=== PATIENT | female | born 1990 | race African-American/Black ===

== ENCOUNTER 2020-06-03 10:38 | Emergency (ER) | payer OTHER, SELFPAY ==
[2020-06-03 10:56] VITALS: BP 121/76; PULSE 80; RESP 16; TEMP 36.9; O2SAT 100; BMI 36.9
[2020-06-03 11:01] VITALS: BP 121/76; RESP 80; TEMP 36.9; O2SAT 100
--- NOTE | 2020-06-03 11:01 | ED.GENADULT ---
HPI - General Adult General Chief complaint: Abdominal Pain Stated complaint: ABD PAIN Time Seen by Provider: 06/03/20 10:55 Source: patient Mode of arrival: ambulatory Limitations: no limitations History of Present Illness HPI narrative: patient comes to the emergency room complaining of diarrhea for 5 days. Patient denies vomiting, no abdominal pain, no fever. Patient states she has not tried any [id number] medications at home for the diarrhea MD complaint: diarrhea Related Data Previous Rx's Medication Instructions Recorded loperamide 2 mg PO Q6H PRN #10 cap 06/03/20 Allergies Allergy/AdvReac Type Severity Reaction Status Date / Time No Known Allergies Allergy Verified 06/03/20 10:38 [No Known Allergies*] Review of Systems Review of Systems: Constitutional : No Weight loss, No Fever, No Chills, No Night Sweats, No Fatigue, No Malaise ENT/Mouth : No Hearing loss, No Ear Pain, No Nasal Congestion, No Sinus Pain, No Hoarseness, No sore throat, No Rhinorrhea, No Swallowing Difficulty Eyes: No Eye Pain, No Swelling, No Redness, No Foreign Body, No Discharge, No Vision Changes Cardiovascular : No Chest Pain, No SOB, No Dyspnea on Exertion, No Orthopnea, No Edema, No Palpitations Respiratory : No Cough, No Sputum, No Wheezing, No Smoke Exposure, No Dyspnea Gastrointestinal : No Nausea, No Vomiting, complaining of diarrhea Genitourinary : no irregular bleeding, No Dysuria, No Urinary Frequency, No Hematuria, No Urinary Incontinence, No Urgency, No Flank Pain, No Urinary Flow Changes, No Hesitancy Musculoskeletal : No joint pain, No Myalgias, No Joint Swelling Skin : No Skin Lesions, No rash Neuro : No Weakness, No Numbness, No Paresthesias, No Loss of Consciousness, No Dizziness, No Headache Psych : No Anxiety/Panic, No Depression, No SI/HI/AH/VH, No Social Issues, Heme/Lymph: No Bruising, No Bleeding,No Lymphadenopathy Endocrine : No Polyuria, No Polydipsia, No Temperature Intolerance [facility] Past Medical History Medical History No known health problems Social History Social History Alcohol intake: current Alcohol intake frequency: a few times a month Smoking Status: Never smoker Use of substances other than those prescribed or required for medical reasons: No Advance Directives: No Advance Directives Information Provided: No Physical Exam Vital Signs: Vital Signs: Vital Signs Temp Pulse Resp BP Pulse Ox 06/03/20 11:01 98.4 F 80 H 121/76 100 06/03/20 10:56 98.4 F 80 16 121/76 100 Body Mass Index 36.9 Appearance: Alert. Oriented X3. No acute distress. Eyes: Pupils equal, round and reactive to light. ENT: Pharynx normal. Neck: Normal inspection. Neck supple. No lymph nodes noted. No crepitus CVS: Normal heart rate and rhythm. Pulses normal. Normal S1 and S2 Respiratory: No respiratory distress. Breath sounds normal. No Wheezing. No rales Abdomen: Soft and nontender. No rigidity. No distention. good BS x4 Skin: Skin warm and dry. Normal skin color. Normal skin turgor. Extremities: No lower extremity edema. No lower extremity edema. No Lacerations. No Rash Neuro: Oriented X 3. No motor deficit. No sensory deficit. Moving all extermities. No slurred speech. Course Course Course Narrative: patient feeling better, she has not had any diarrhea since she came to the emergency room. Medical Decision Making Lab Data Result diagrams: 06/03/20 11:19 06/03/20 12:42 Labs: Lab Results 06/03/20 06/03/20 06/03/20 Range/Units 11:19 11:19 11:19 WBC 6.0 (4.8-10.8) X10*3/uL RBC 4.27 (4.20-5.50) X10*6/uL Hgb 12.3 (12.0-16.0) g/dl Hct 37.8 (37-47) % MCV 88.5 (80-98) fL MCH 28.8 (27.0-33.0) pg MCHC 32.5 (31.0-35.0) g/dl RDW 12.5 (11.0-16.0) % Plt Count 344 (160-400) X10*3/uL MPV 10.6 (9.4-12.3) fL Immature Gran % (Auto) 0.2 (0.0-0.4) % Neut % (Auto) 41.3 L (45-73) % Lymph % (Auto) 43.7 H (20-40) % [place] % (Auto) 12.1 H (2-11) % Eos % (Auto) 2.0 (0-4) % Baso % (Auto) 0.7 (0-2) % Lymph # (Auto) 2.6 (1.2-4.9) X10*3/uL [place] # (Auto) 0.7 (0.1-1.2) X10*3/uL Eos # (Auto) 0.1 (0.0-0.4) X10*3/uL Baso # (Auto) 0.0 (0.0-0.2) X10*3/uL Abs Immat Gran (auto) 0.01 (0.00-0.03) X10*3/uL Absolute Neuts (auto) 2.5 (2.0-8.3) X10*3/uL Absolute Nucleated RBC 0.000 (0.0-0.012) X10*3/uL Nucleated RBC % (auto) 0.0 (0.0-0.2) /100WBC Sodium Cancelled Potassium Cancelled Chloride Cancelled Carbon Dioxide Cancelled Anion Gap Cancelled BUN Cancelled Creatinine Cancelled Estim Creat Clear Calc Cancelled Estimated GFR Cancelled Random Glucose Cancelled Calcium Cancelled Total Bilirubin Cancelled Direct Bilirubin Cancelled AST Cancelled ALT Cancelled Alkaline Phosphatase Cancelled Total Protein Cancelled Albumin Cancelled Lipase Cancelled Urine Color YELLOW Urine Appearance HAZY Urine pH 6.0 (5.0-8.0) Ur Specific [place] >= 1.030 H (1.005-1.025) Urine Protein NEG (NEG-TRACE) MG/DL Urine Glucose (UA) NEG (NEG) MG/DL Urine Ketones NEG (NEG) MG/DL Urine Blood NEG (NEG) Urine Nitrite NEG (NEG) Ur Leukocyte Esterase NEG (NEG) Urine Test NEGATIVE (NEGATIVE) 06/03/20 Range/Units 12:42 WBC (4.8-10.8) X10*3/uL RBC (4.20-5.50) X10*6/uL Hgb (12.0-16.0) g/dl Hct (37-47) % MCV (80-98) fL MCH (27.0-33.0) pg MCHC (31.0-35.0) g/dl RDW (11.0-16.0) % Plt Count (160-400) X10*3/uL MPV (9.4-12.3) fL Immature Gran % (Auto) (0.0-0.4) % Neut % (Auto) (45-73) % Lymph % (Auto) (20-40) % [place] % (Auto) (2-11) % Eos % (Auto) (0-4) % Baso % (Auto) (0-2) % Lymph # (Auto) (1.2-4.9) X10*3/uL [place] # (Auto) (0.1-1.2) X10*3/uL Eos # (Auto) (0.0-0.4) X10*3/uL Baso # (Auto) (0.0-0.2) X10*3/uL Abs Immat Gran (auto) (0.00-0.03) X10*3/uL Absolute Neuts (auto) (2.0-8.3) X10*3/uL Absolute Nucleated RBC (0.0-0.012) X10*3/uL Nucleated RBC % (auto) (0.0-0.2) /100WBC Sodium 137 Potassium 4.2 Chloride 108 Carbon Dioxide 22 Anion Gap 11 L BUN 16 Creatinine 0.81 Estim Creat Clear Calc 131.3 Estimated GFR > 60 Random Glucose 87 Calcium 8.1 L Total Bilirubin 0.2 Direct Bilirubin < 0.2 AST 10 ALT 9 Alkaline Phosphatase 55 Total Protein 6.1 L Albumin 3.5 Lipase 74 Urine Color Urine Appearance Urine pH (5.0-8.0) Ur Specific [place] (1.005-1.025) Urine Protein (NEG-TRACE) MG/DL Urine Glucose (UA) (NEG) MG/DL Urine Ketones (NEG) MG/DL Urine Blood (NEG) Urine Nitrite (NEG) Ur Leukocyte Esterase (NEG) Urine Test (NEGATIVE) Discharge Plan Discharge Clinical Impression: Diarrhea Qualifiers: Diarrhea type: unspecified type Qualified Code(s): R19.7 - Diarrhea, unspecified Patient Disposition: Home, Self-Care Instructions: Acute Diarrhea (ED) Additional Instructions: Please follow-up with your primary care physician tomorrow. If you have any worsening or new symptoms, please return to the emergency room or call 911 Prescriptions: New loperamide 2 mg capsule 2 mg PO Q6H PRN (Reason: loose stool) Qty: 10 RF: 0
[2020-06-03] MEDS: 0.9 % Sodium Chloride 1,000 ML 999 ML IVCONT (11:20)
--- NOTE | 2020-06-03 11:24 | PC.NURSE ---
pt triaged c/o RUQ cramping pain x 2 days with 1 wk of diarrhea. denies fevers, n/v. 22G in L hand, fluids running. no other significant pmh.
[2020-06-03 11:26] LABS: Basophils Percent Auto 0.7 % (0-2); Eosinophils Absolute Auto 0.1 X10*3/uL (0.0-0.4); Hematocrit 37.8 % (37-47); Hemoglobin 12.3 g/dl (12.0-16.0); Imm Gran Abs Auto 0.01 X10*3/uL (0.00-0.03); Imm Gran Pct Auto 0.2 % (0.0-0.4); Lymphocytes Absolute Auto 2.6 X10*3/uL (1.2-4.9); Lymphocytes Percent Auto 43.7 % (20-40); MANUAL DIFF FLAG NO; Mean Corpuscular HGB Conc 32.5 g/dl (31.0-35.0); Mean Corpuscular Hemoglobin 28.8 pg (27.0-33.0); Mean Corpuscular Volume 88.5 fL (80-98); Mean Platelet Volume 10.6 fL (9.4-12.3); Monocytes Absolute Auto 0.7 X10*3/uL (0.1-1.2); Monocytes Percent Auto 12.1 % (2-11); Neutrophils Absolute Auto 2.5 X10*3/uL (2.0-8.3); Neutrophils Percent Auto 41.3 % (45-73); Platelet Count 344 X10*3/uL (160-400); Red Blood Count 4.27 X10*6/uL (4.20-5.50); Red Cell Distribution Width 12.5 % (11.0-16.0)
--- NOTE | 2020-06-03 11:30 | PC.NURSE ---
PHARMACY CALLED FOR LIQUID IMODIUM
[2020-06-03 11:41] LABS: Glucose Urine UA NEG (NEG); Leukocyte Esterase Urine NEG (NEG); Nitrite Urine NEG (NEG); Specific Gravity - Urine >= 1.030 (1.005-1.025); Urine Blood NEG (NEG); Urine Ketones NEG (NEG); Urine Protein NEG (NEG-TRACE)
[2020-06-03 11:42] LABS: Appearance Urine HAZY; Color Urine YELLOW; UACC Culture Trigger NO
[2020-06-03 11:44] LABS: UPreg QC Valid YES; Urine Pregnancy NEGATIVE (NEGATIVE)
[2020-06-03 13:13] LABS: Alanine Aminotransferase 9 U/L (0-31); Albumin Level 3.5 g/dL (3.5-5.0); Alkaline Phosphatase 55 U/L (39-117); Anion Gap 11 (12-20); Aspartate Amino Transferase 10 U/L (5-31); Bilirubin Direct < 0.2 mg/dL (0.0-0.5); Bilirubin Total 0.2 mg/dL (0.0-1.0); Blood Urea Nitrogen 16 mg/dL (9-16); Calcium 8.1 mg/dL (8.4-10.2); Carbon Dioxide 22 mmol/L (22-29); Chloride 108 mmol/L (96-108); Creatinine Clr Calc Pharmacy 131.3; Estimated Glomerular Filt Rate > 60; Glucose Random 87 mg/dL (60-115); Lipase 74 U/L (8-78); Potassium 4.2 mmol/l (3.3-5.1); Sodium 137 mmol/L (135-145); Total Protein 6.1 g/dL (6.5-8.0)
[2020-06-03 14:04] VITALS: BP 112/68; PULSE 73; RESP 16; O2SAT 99
== END 2020-06-03 14:04 | disposition home or self-care (01) ==
PROVIDERS: Emergency Provider Emergency Medicine
DX: R19.7 Diarrhea, unspecified (principal); R10.9 Unspecified abdominal pain; Z79.899 Other long term (current) drug therapy
CPT/HCPCS: 36415; 80048; 80076; 81003; 81025; 83690; 85025; 96360; 99284

== ENCOUNTER 2022-09-01 15:21 | Emergency (ER) | payer OTHER, SELFPAY ==
--- NOTE | ~2022-09-01 | XR_ITS ---
EXAMINATION: XR CHEST CLINICAL INFORMATION: Cough. Shortness of breath. COMPARISON: None TECHNIQUE: 2 views of the chest were obtained. XR/XR chest 2V FINDINGS/IMPRESSION: Findings suggest patchy left basilar densities suggesting lingular and possible left lower lobe pneumonia. Subtle right basilar pneumonia cannot be excluded as well. No effusion or pneumothorax is seen. The cardiovascular structures, mediastinum, diaphragm, bones, and soft tissues appear unremarkable.
[2022-09-01 15:32] VITALS: BP 123/85; PULSE 79; RESP 17; TEMP 37; O2SAT 94; BMI 39.1
--- NOTE | 2022-09-01 15:35 | ED.URI ---
HPI - URI/Sore Throat General Chief Complaint: General Medical <Stephanie Richard CNP - Last Filed: 09/01/22 15:36> Stated Complaint: flu like symptoms <Stephanie Richard CNP - Last Filed: 09/01/22 15:36> Time Seen by Provider: 09/01/22 15:47 <Stephanie Richard CNP - Last Filed: 09/01/22 15:36> Source: patient <FOX Mirza - Last Filed: 09/01/22 18:22> Mode of arrival: ambulatory <FOX Mirza - Last Filed: 09/01/22 18:22> History of Present Illness HPI Narrative: 31-year-old female with no significant past medical history presenting to the ED complaining of productive cough, sore throat, headache, rhinorrhea, congestion, SOB x2 weeks. Reports taking home COVID-19 test which was negative. States symptoms are persistent, + sick contact. Reports fevers in the beginning which have since resolved. Denies recent travel, CP, abdominal pain, nausea/vomiting, pedal edema <FOX Mirza - Last Filed: 09/01/22 18:22> MD elicited complaint: fever, cough, sore throat, rhinorrhea and nasal congestion <FOX Mirza - Last Filed: 09/01/22 18:22> Onset (ago): week(s) <FOX Mirza - Last Filed: 09/01/22 18:22> Related Data Home Medications: Previous Rx's Medication Instructions Recorded loperamide 2 mg capsule 2 mg PO Q6H PRN loose stool #10 06/03/20 caps <Stephanie Richard CNP - Last Filed: 09/01/22 15:36> Allergies/Adverse Reactions: Allergies Allergy/AdvReac Type Severity Reaction Status Date / Time No Known Allergies Allergy Verified 09/01/22 15:36 [No Known Allergies*] <Stephanie Richard CNP - Last Filed: 09/01/22 15:36> Review of Systems Review of Systems: Constitutional: + Fever (resolved), No Chills ENT/Mouth: No Ear Pain, + Nasal Congestion, No Sinus Pain, No Hoarseness, + sore throat, + Rhinorrhea, No Swallowing Difficulty Cardiovascular: No Chest Pain, + SOB Respiratory: + Cough, + Sputum, No Wheezing Gastrointestinal: No Nausea, No Vomiting, No Diarrhea, No Constipation, No Abdominal pain Musculoskeletal: No joint pain, No Myalgias, No Joint Swelling Skin: No Skin Lesions, No rash Neuro: No Weakness, No Numbness, No Paresthesias <FOX Mirza - Last Filed: 09/01/22 18:22> Yes all other systems are reviewed and are negative <FOX Mirza - Last Filed: 09/01/22 18:22> Constitutional: Constitutional: Reports as per HPI <FOX Mirza - Last Filed: 09/01/22 18:22> [facility] Past Medical History Attestation statement: The following information was validated with the patient. <FOX Mirza - Last Filed: 09/01/22 18:22> Medical History: Medical History No known health problems <Stephanie Richard CNP - Last Filed: 09/01/22 15:36> Social History Social History: Social History Alcohol intake: current Alcohol intake frequency: a few times a month Advance Directives: No Advance Directives Information Provided: No <Stephanie Richard CNP - Last Filed: 09/01/22 15:36> Physical Exam Vital Signs: Vital Signs: Last Vital Signs Temp 98.6 F 09/01/22 15:32 Pulse 79 09/01/22 15:32 Resp 17 09/01/22 15:32 BP 123/85 09/01/22 15:32 Pulse Ox 94 09/01/22 15:32 O2 Del Method 09/01/22 15:32 BMI result Body Mass Index 39.1 <Stephanie Richard CNP - Last Filed: 09/01/22 15:36> Vital Signs: Last Vital Signs Temp 98.6 F 09/01/22 15:32 Pulse 79 09/01/22 15:32 Resp 17 09/01/22 15:32 BP 123/85 09/01/22 15:32 Pulse Ox 94 09/01/22 15:32 O2 Del Method 09/01/22 15:32 BMI result Body Mass Index 39.1 <FOX Mirza - Last Filed: 09/01/22 18:22> Const: General: cooperative, healthy appearing, comfortable and no acute distress <FOX Mirza - Last Filed: 09/01/22 18:22> Orientation/consciousness: patient oriented x3 <FOX Mirza - Last Filed: 09/01/22 18:22> Limitations: no limitations <FOX Mirza - Last Filed: 09/01/22 18:22> HEENT: Head: Yes normal to inspection and Yes atraumatic <FOX Mirza - Last Filed: 09/01/22 18:22> Ears: hearing grossly normal bilaterally, TM's normal bilaterally and mastoids normal <FOX Mirza - Last Filed: 09/01/22 18:22> General nose exam: Normal external nose present <FOX Mirza - Last Filed: 09/01/22 18:22> Face and sinus: Yes normal facial exam <FOX Mirza - Last Filed: 09/01/22 18:22> Mouth: Normal oral and palatal mucosa present <FOX Mirza - Last Filed: 09/01/22 18:22> Throat: Yes posterior oropharynx normal, Yes tonsils normal, Yes uvula midline, No peritonsillar mass, No uvula laterally displaced and No uvular edema <FOX Mirza - Last Filed: 09/01/22 18:22> Eyes: General: appearance normal, both eyes and all related structures <FOX Mirza - Last Filed: 09/01/22 18:22> EOM: EOMs intact bilaterally <FOX Mirza - Last Filed: 09/01/22 18:22> Neck: Neck: Yes normal visual inspection and Yes no meningeal signs <FOX Mirza - Last Filed: 09/01/22 18:22> Resp: Effort & Inspection: normal respiratory effort and no respiratory distress <FOX Mirza - Last Filed: 09/01/22 18:22> Auscultation: clear to auscultation bilaterally, no crackles, no rales and no rhonchi <Veronica Daniel PA - Last Filed: 09/01/22 18:22> Cardio: Rate: regular rate <Veronica Daniel PA - Last Filed: 09/01/22 18:22> Heart sounds: S1 normal heart sound present and S2 normal heart sound present <Veronica Daniel PA - Last Filed: 09/01/22 18:22> Skin: Rashes: no rashes <Veronica Ronaldt PA - Last Filed: 09/01/22 18:22> Wounds: no wounds <Veronica Cardenast PA - Last Filed: 09/01/22 18:22> Neuro: General: patient oriented x3, tone normal and no meningeal signs <Veronica Daniel PA - Last Filed: 09/01/22 18:22> Gait exam (Neuro): Normal gait present <Veronica Daniel PA - Last Filed: 09/01/22 18:22> Extrem: General: Yes normal to inspection <Veronica Daniel PA - Last Filed: 09/01/22 18:22> Course Course Course Narrative: This is an RME: Additional HPI, ROS, PE not included below will be deferred to primary provider. Patient is a 31-year-old female who presents emergency department for evaluation of upper respiratory symptoms. She is reporting cough, shortness of breath, fevers, chills x 2 weeks with no improvement. Took at home COVID testing which was negative. Plan: viral testing, chest XR <Stephanie Richard CNP - Last Filed: 09/01/22 15:36> This is an RME: Additional HPI, ROS, PE not included below will be deferred to primary provider. Patient is a 31-year-old female who presents emergency department for evaluation of upper respiratory symptoms. She is reporting cough, shortness of breath, fevers, chills x 2 weeks with no improvement. Took at home COVID testing which was negative. Plan: viral testing, chest XR XR chest 2V FINDINGS/IMPRESSION: Findings suggest patchy left basilar densities suggesting lingular and possible left lower lobe pneumonia. Subtle right basilar pneumonia cannot be excluded as well. ? No effusion or pneumothorax is seen. ? The cardiovascular structures, mediastinum, diaphragm, bones, and soft tissues appear unremarkable. >> low suspicion for severe sepsis. Labs including lactic and blood cultures added -1816--mild leukocytosis to 12.0. Still low suspicion for severe sepsis. Labs otherwise reassuring Results discussed with patient including worrisome signs and symptoms and strict return precautions, and when to return to the emergency department. They verbalized understanding and feel safe for discharge at this time. <FOX Mirza - Last Filed: 09/01/22 18:22> Medications Administered Discontinued Medications Generic Name Dose Route Start Last Admin Trade Name Freq PRN Reason Stop Dose Admin Acetaminophen/Butalbital/Caffeine 1 tab 09/01/22 16:13 09/01/22 16:47 Butalb/Acetamin/Caff 50/325/40 Tablet PO 09/01/22 16:14 1 tab ONCE ONE Administration Benzonatate 100 mg 09/01/22 16:13 09/01/22 16:48 Benzonatate 100 Mg Capsule PO 09/01/22 16:14 100 mg ONCE ONE Administration <Stephanie Richard CNP - Last Filed: 09/01/22 15:36> Medications Administered Discontinued Medications Generic Name Dose Route Start Last Admin Trade Name Freq PRN Reason Stop Dose Admin Acetaminophen/Butalbital/Caffeine 1 tab 09/01/22 16:13 09/01/22 16:47 Butalb/Acetamin/Caff 50/325/40 Tablet PO 09/01/22 16:14 1 tab ONCE ONE Administration Benzonatate 100 mg 09/01/22 16:13 09/01/22 16:48 Benzonatate 100 Mg Capsule PO 09/01/22 16:14 100 mg ONCE ONE Administration <FOX Mirza - Last Filed: 09/01/22 18:22> Medical Decision Making Medical Decision Making MDM Narrative: 31-year-old female with no significant past medical history presenting to the ED complaining of productive cough, sore throat, headache, rhinorrhea, congestion, SOB x2 weeks. On exam vital signs stable, NAD, nontoxic appearing, exam otherwise nonfocal. Concern for viral illness vs bronchitis vs pneumonia. Lower suspicion for ACS/PE. Plan: COVID-19/influenza/RSV testing, rapid strep, CXR <FOX Mirza - Last Filed: 09/01/22 18:22> Differential Diagnosis Differential Diagnoses: The differential diagnosis associated with the presentation includes <FOX Mirza - Last Filed: 09/01/22 18:22> as above <FOX Mirza - Last Filed: 09/01/22 18:22> Lab Data MDM Lab Attestation statement: I reviewed the patient's lab results. <FOX Mirza - Last Filed: 09/01/22 18:22> Result Diagrams: 09/01/22 17:27 09/01/22 17:27 <Stephanie Richard CNP - Last Filed: 09/01/22 15:36> Labs: Lab Results 09/01/22 09/01/22 09/01/22 Range/Units 15:46 17:27 17:27 WBC 12.0 H (4.8-10.8) X10*3/uL RBC 4.15 L (4.20-5.50) X10*6/uL Hgb 12.0 (12.0-16.0) g/dl Hct 35.2 L (37.0-47.0) % MCV 84.8 (80.0-98.0) fL MCH 28.9 (27.0-33.0) pg MCHC 34.1 (31.0-35.0) g/dl RDW 12.4 (11.0-16.0) % Plt Count 373 (160-400) X10*3/uL MPV 9.8 (9.4-12.3) fL Immature Gran % (Auto) 0.4 (0.0-0.4) % Neut % (Auto) 62.5 (45-73) % Lymph % (Auto) 27.2 (20-40) % [place] % (Auto) 8.9 (2-11) % Eos % (Auto) 0.7 (0-4) % Baso % (Auto) 0.3 (0-2) % Lymph # (Auto) 3.3 (1.2-4.9) X10*3/uL [place] # (Auto) 1.1 (0.1-1.2) X10*3/uL Eos # (Auto) 0.1 (0.0-0.4) X10*3/uL Baso # (Auto) 0.0 (0.0-0.2) X10*3/uL Abs Immat Gran (auto) 0.05 H (0.00-0.03) X10*3/uL Absolute Neuts (auto) 7.5 (2.0-8.3) x10*3/uL Absolute Nucleated RBC 0.000 (0.0-0.012) X10*3/uL Nucleated RBC % (auto) 0.0 (0.0-0.2) /100WBC Sodium (135-145) mmol/L Potassium (3.3-5.1) mmol/L Chloride (96-108) mmol/L Carbon Dioxide (22-29) mmol/L Anion Gap (12-20) BUN (9-16) mg/dL Creatinine (0.5-1.4) mg/dL Estim Creat Clear Calc Estimated GFR Random Glucose (60-115) mg/dL Lactic Acid (0.5-2.0) mmol/L Calcium (8.4-10.2) mg/dL Total Bilirubin (0.0-1.0) mg/dL Direct Bilirubin (0.0-0.5) mg/dL AST (5-31) U/L ALT (0-31) U/L Alkaline Phosphatase (39-117) U/L Total Protein (6.5-8.0) g/dL Albumin (3.5-5.0) g/dL Influenza Type A (PCR) NEGATIVE (Negative) Influenza Type B (PCR) NEGATIVE (Negative) RSV RNA Qual (PCR) NEGATIVE (Negative) SARS-CoV-2 RNA (RT-PCR) NEGATIVE (Negative) S. pyogenes GrpA PRETTY Negative (Negative) 09/01/22 09/01/22 Range/Units 17:27 17:27 WBC (4.8-10.8) X10*3/uL RBC (4.20-5.50) X10*6/uL Hgb (12.0-16.0) g/dl Hct (37.0-47.0) % MCV (80.0-98.0) fL MCH (27.0-33.0) pg MCHC (31.0-35.0) g/dl RDW (11.0-16.0) % Plt Count (160-400) X10*3/uL MPV (9.4-12.3) fL Immature Gran % (Auto) (0.0-0.4) % Neut % (Auto) (45-73) % Lymph % (Auto) (20-40) % [place] % (Auto) (2-11) % Eos % (Auto) (0-4) % Baso % (Auto) (0-2) % Lymph # (Auto) (1.2-4.9) X10*3/uL [place] # (Auto) (0.1-1.2) X10*3/uL Eos # (Auto) (0.0-0.4) X10*3/uL Baso # (Auto) (0.0-0.2) X10*3/uL Abs Immat Gran (auto) (0.00-0.03) X10*3/uL Absolute Neuts (auto) (2.0-8.3) x10*3/uL Absolute Nucleated RBC (0.0-0.012) X10*3/uL Nucleated RBC % (auto) (0.0-0.2) /100WBC Sodium 141 (135-145) mmol/L Potassium 4.1 (3.3-5.1) mmol/L Chloride 108 (96-108) mmol/L Carbon Dioxide 21 L (22-29) mmol/L Anion Gap 16 (12-20) BUN 13 (9-16) mg/dL Creatinine 0.87 (0.5-1.4) mg/dL Estim Creat Clear Calc 123.9 Estimated GFR > 60 Random Glucose 89 (60-115) mg/dL Lactic Acid 0.7 (0.5-2.0) mmol/L Calcium 9.1 D (8.4-10.2) mg/dL Total Bilirubin 0.3 (0.0-1.0) mg/dL Direct Bilirubin < 0.2 (0.0-0.5) mg/dL AST 16 (5-31) U/L ALT 19 (0-31) U/L Alkaline Phosphatase 60 (39-117) U/L Total Protein 6.9 (6.5-8.0) g/dL Albumin 3.9 (3.5-5.0) g/dL Influenza Type A (PCR) (Negative) Influenza Type B (PCR) (Negative) RSV RNA Qual (PCR) (Negative) SARS-CoV-2 RNA (RT-PCR) (Negative) S. pyogenes GrpA PRETTY (Negative) <Stephanie Sandoval Jose Manuel, [employer] - Last Filed: 09/01/22 15:36> Lab Results 09/01/22 09/01/22 09/01/22 Range/Units 15:46 17:27 17:27 WBC 12.0 H (4.8-10.8) X10*3/uL RBC 4.15 L (4.20-5.50) X10*6/uL Hgb 12.0 (12.0-16.0) g/dl Hct 35.2 L (37.0-47.0) % MCV 84.8 (80.0-98.0) fL MCH 28.9 (27.0-33.0) pg MCHC 34.1 (31.0-35.0) g/dl RDW 12.4 (11.0-16.0) % Plt Count 373 (160-400) X10*3/uL MPV 9.8 (9.4-12.3) fL Immature Gran % (Auto) 0.4 (0.0-0.4) % Neut % (Auto) 62.5 (45-73) % Lymph % (Auto) 27.2 (20-40) % [place] % (Auto) 8.9 (2-11) % Eos % (Auto) 0.7 (0-4) % Baso % (Auto) 0.3 (0-2) % Lymph # (Auto) 3.3 (1.2-4.9) X10*3/uL [place] # (Auto) 1.1 (0.1-1.2) X10*3/uL Eos # (Auto) 0.1 (0.0-0.4) X10*3/uL Baso # (Auto) 0.0 (0.0-0.2) X10*3/uL Abs Immat Gran (auto) 0.05 H (0.00-0.03) X10*3/uL Absolute Neuts (auto) 7.5 (2.0-8.3) x10*3/uL Absolute Nucleated RBC 0.000 (0.0-0.012) X10*3/uL Nucleated RBC % (auto) 0.0 (0.0-0.2) /100WBC Sodium (135-145) mmol/L Potassium (3.3-5.1) mmol/L Chloride (96-108) mmol/L Carbon Dioxide (22-29) mmol/L Anion Gap (12-20) BUN (9-16) mg/dL Creatinine (0.5-1.4) mg/dL Estim Creat Clear Calc Estimated GFR Random Glucose (60-115) mg/dL Lactic Acid (0.5-2.0) mmol/L Calcium (8.4-10.2) mg/dL Total Bilirubin (0.0-1.0) mg/dL Direct Bilirubin (0.0-0.5) mg/dL AST (5-31) U/L ALT (0-31) U/L Alkaline Phosphatase (39-117) U/L Total Protein (6.5-8.0) g/dL Albumin (3.5-5.0) g/dL Influenza Type A (PCR) NEGATIVE (Negative) Influenza Type B (PCR) NEGATIVE (Negative) RSV RNA Qual (PCR) NEGATIVE (Negative) SARS-CoV-2 RNA (RT-PCR) NEGATIVE (Negative) S. pyogenes GrpA PRETTY Negative (Negative) 09/01/22 09/01/22 Range/Units 17:27 17:27 WBC (4.8-10.8) X10*3/uL RBC (4.20-5.50) X10*6/uL Hgb (12.0-16.0) g/dl Hct (37.0-47.0) % MCV (80.0-98.0) fL MCH (27.0-33.0) pg MCHC (31.0-35.0) g/dl RDW (11.0-16.0) % Plt Count (160-400) X10*3/uL MPV (9.4-12.3) fL Immature Gran % (Auto) (0.0-0.4) % Neut % (Auto) (45-73) % Lymph % (Auto) (20-40) % [place] % (Auto) (2-11) % Eos % (Auto) (0-4) % Baso % (Auto) (0-2) % Lymph # (Auto) (1.2-4.9) X10*3/uL [place] # (Auto) (0.1-1.2) X10*3/uL Eos # (Auto) (0.0-0.4) X10*3/uL Baso # (Auto) (0.0-0.2) X10*3/uL Abs Immat Gran (auto) (0.00-0.03) X10*3/uL Absolute Neuts (auto) (2.0-8.3) x10*3/uL Absolute Nucleated RBC (0.0-0.012) X10*3/uL Nucleated RBC % (auto) (0.0-0.2) /100WBC Sodium 141 (135-145) mmol/L Potassium 4.1 (3.3-5.1) mmol/L Chloride 108 (96-108) mmol/L Carbon Dioxide 21 L (22-29) mmol/L Anion Gap 16 (12-20) BUN 13 (9-16) mg/dL Creatinine 0.87 (0.5-1.4) mg/dL Estim Creat Clear Calc 123.9 Estimated GFR > 60 Random Glucose 89 (60-115) mg/dL Lactic Acid 0.7 (0.5-2.0) mmol/L Calcium 9.1 D (8.4-10.2) mg/dL Total Bilirubin 0.3 (0.0-1.0) mg/dL Direct Bilirubin < 0.2 (0.0-0.5) mg/dL AST 16 (5-31) U/L ALT 19 (0-31) U/L Alkaline Phosphatase 60 (39-117) U/L Total Protein 6.9 (6.5-8.0) g/dL Albumin 3.9 (3.5-5.0) g/dL Influenza Type A (PCR) (Negative) Influenza Type B (PCR) (Negative) RSV RNA Qual (PCR) (Negative) SARS-CoV-2 RNA (RT-PCR) (Negative) S. pyogenes GrpA PRETTY (Negative) <FOX Mirza - Last Filed: 09/01/22 18:22> Radiology Impression Discussion of test interpretation with radiology: I have reviewed the radiologist's reading. <FOX Mirza - Last Filed: 09/01/22 18:22> External Record Review External record reviewed: Outpatient record and Prior outpatient labs <FOX Mirza - Last Filed: 09/01/22 18:22> Discharge Plan Discharge Clinical Impression: Multifocal pneumonia <Stephanie Richard CNP - Last Filed: 09/01/22 15:36> Prescriptions: No Action loperamide 2 mg capsule 2 mg PO Q6H PRN (Reason: loose stool) Qty: 10 0RF <Stephanie Richard CNP - Last Filed: 09/01/22 15:36>
[2022-09-01 16:28] LABS: Influenza A PCR NEGATIVE (Negative); Influenza B PCR NEGATIVE (Negative); Resp Syncy Virus RNA Qual PCR NEGATIVE (Negative); SARS COV2 PCR INHOUSE NEGATIVE (Negative)
[2022-09-01] MEDS: Butalb/Acetamin/Caff 50/325/40 TABLET 1 TAB PO (16:47)
[2022-09-01] MEDS: Benzonatate 100 MG CAPSULE PO (16:48)
[2022-09-01 17:34] LABS: MANUAL DIFF FLAG NO
[2022-09-01 17:36] LABS: Basophils Percent Auto 0.3 % (0-2); Eosinophils Absolute Auto 0.1 X10*3/uL (0.0-0.4); Eosinophils Percent Auto 0.7 % (0-4); Hematocrit 35.2 % (37.0-47.0); Imm Gran Abs Auto 0.05 X10*3/uL (0.00-0.03); Imm Gran Pct Auto 0.4 % (0.0-0.4); Lymphocytes Absolute Auto 3.3 X10*3/uL (1.2-4.9); Lymphocytes Percent Auto 27.2 % (20-40); Mean Corpuscular HGB Conc 34.1 g/dl (31.0-35.0); Mean Corpuscular Hemoglobin 28.9 pg (27.0-33.0); Mean Corpuscular Volume 84.8 fL (80.0-98.0); Mean Platelet Volume 9.8 fL (9.4-12.3); Monocytes Absolute Auto 1.1 X10*3/uL (0.1-1.2); Monocytes Percent Auto 8.9 % (2-11); Neutrophils Absolute Auto 7.5 x10*3/uL (2.0-8.3); Neutrophils Percent Auto 62.5 % (45-73); Platelet Count 373 X10*3/uL (160-400); Red Blood Count 4.15 X10*6/uL (4.20-5.50); Red Cell Distribution Width 12.4 % (11.0-16.0)
[2022-09-01 17:47] LABS: Lactic Acid 0.7 mmol/L (0.5-2.0)
[2022-09-01 17:48] LABS: IDNOW Serial# 6674DD1D; Strep A Nucleic Acid Negative (Negative)
[2022-09-01 17:54] LABS: Alanine Aminotransferase 19 U/L (0-31); Albumin Level 3.9 g/dL (3.5-5.0); Alkaline Phosphatase 60 U/L (39-117); Anion Gap 16 (12-20); Aspartate Amino Transferase 16 U/L (5-31); Bilirubin Direct < 0.2 mg/dL (0.0-0.5); Bilirubin Total 0.3 mg/dL (0.0-1.0); Blood Urea Nitrogen 13 mg/dL (9-16); Calcium 9.1 mg/dL (8.4-10.2); Carbon Dioxide 21 mmol/L (22-29); Chloride 108 mmol/L (96-108); Creatinine Clr Calc Pharmacy 123.9; Estimated Glomerular Filt Rate > 60; Glucose Random 89 mg/dL (60-115); Potassium 4.1 mmol/L (3.3-5.1); Sodium 141 mmol/L (135-145); Total Protein 6.9 g/dL (6.5-8.0)
== END 2022-09-01 18:28 | disposition home or self-care (01) ==
PROVIDERS: Nurse Practitioner Family; Physician Assistant; Emergency Provider Internal Medicine
DX: J18.9 Pneumonia, unspecified organism (principal); R05.9 Cough, unspecified; R51.9 Headache, unspecified; R06.02 Shortness of breath; Z20.822 Contact with and (suspected) exposure to COVID-19; Z20.828 Contact with and (suspected) exposure to other viral communicable diseases; Z79.899 Other long term (current) drug therapy
CPT/HCPCS: 0241U; 36415; 71046; 80048; 80076; 83605; 85025; 87040; 87651; 99284